=== PATIENT | female | born 1990 | race Two or more races ===

== ENCOUNTER 2019-02-23 23:21 | Emergency (ER) | payer BC ==
[~2019-02-23] VITALS: Ht 177.8 cm; Wt 117.9 kg
[2019-02-23 23:32] VITALS: BP 136/81
[2019-02-23] MEDS ORDERED: LIDOCAINE /MPF 1% VIAL 5 ML VIAL ONE (23:48)
[2019-02-23] MEDS ORDERED: TDAP [DIPH/PERTUSSIS/TET] 0.5 ML VIAL IM ONE (23:53)
[2019-02-24] MEDS ORDERED: TDAP [DIPH/PERTUSSIS/TET] 0.5 ML VIAL IM ONE
[2019-02-24] MEDS ORDERED: LIDOCAINE 1%-EPI 1:100,000 20 ML VIAL TP ONE
--- NOTE | 2019-02-24 00:10 | NUR ---
Patient discharged to home in stable condition. Written and verbal after care instructions given. Patient verbalizes understanding of instruction. Pt ambulatory with a steady gait
== END 2019-02-24 00:12 | disposition home or self-care (01) ==
LOC: ER 23:27
DX: S60.450A Superficial foreign body of right index finger, initial encounter (principal); F32.9 Major depressive disorder, single episode, unspecified; F41.9 Anxiety disorder, unspecified; Z98.890 Other specified postprocedural states; Z60.2 Problems related to living alone; W45.8XXA Other foreign body or object entering through skin, initial encounter; Y93.89 Activity, other specified; Y92.89 Other specified places as the place of occurrence of the external cause; Y99.8 Other external cause status
CPT/HCPCS: 90471; 90715; 99284; A6402; J3490